=== PATIENT | male | born 1955 | race African-American/Black ===

== ENCOUNTER 2017-05-04 03:54 | Emergency (ER) | payer OTHER ==
[~2017-05-04] VITALS: Ht 190.5 cm; Wt 82.6 kg
[~2017-05-04 03:54] MED LIST: AMIT25TA PO; CARB200T4 PO; CYCL10TA2 PO; LANS30CA PO; LORA10CA PO
[2017-05-04 04:00] VITALS: BP 136/90
--- NOTE | 2017-05-04 04:28 | PHYS DOC ---
Past Medical History Past Medical History: Arthritis, GERD, Hypertension, Seizure, Other Additional Past Medical Histor: CHRONIC BACK PAIN, HEMORRHOIDS Past Surgical History: Other Additional Past Surgical Histo: RECTAL CYST REMOVAL Alcohol Use: None Drug Use: Marijuana Adult General Chief Complaint Chief Complaint: PAIN CONTROL HPI HPI Patient is a 61 year old -Thai male with history of chronic back pain and osteoarthritis who presents with pearly controlled rest back hip and joint pain. Patient states symptoms are consistent with known osteoarthritis. Patient states he is not taking any pain medication at home and does not have a follow-up appointment with his primary care physician for 1 more week. Patient arrives by EMS. States the doctor normally gives him a steroid shot. Patient is not diabetic. He does report history of reflux disease but denies history of peptic ulcer disease. No other acute symptoms or complaints.[] Review of Systems Review of Systems Review symptoms as per history of present illness. All other review symptoms are negative. [] All other systems were reviewed and found to be within normal limits, except as documented in this note. Current Medications Current Medications Current Medications Medications (Trade) Dose Ordered Sig/Ga Start Time Stop Time Status Last Admin Dose Admin Famotidine (Pepcid) 20 mg 1X ONCE 05/04/17 04:15 05/04/17 04:16 UNV Prednisone (Prednisone) 60 mg 1X ONCE 05/04/17 04:15 05/04/17 04:16 UNV Allergies Allergies Allergies Coded Allergies Type Severity Reaction Last Updated Verified Iodinated Contrast- Oral and IV Dye Allergy Intermediate 02/12/14 No Physical Exam Physical Exam Constitutional: Well developed, well nourished, no acute distress, non-toxic appearance. [] HENT: Normocephalic, atraumatic, bilateral external ears normal, oropharynx moist, no oral exudates, nose normal. [] Eyes: PERRLA, EOMI, conjunctiva normal, no discharge. [] Neck: Normal range of motion, no tenderness, supple, no stridor. [] Cardiovascular:Heart rate regular rhythm, no murmur [] Lungs & Thorax: Bilateral breath sounds clear to auscultation [] Abdomen: Bowel sounds normal, soft, no tenderness, no masses, no pulsatile masses. [] Skin: Warm, dry, no erythema, no rash. [] Back: No tenderness, no CVA tenderness. [] Extremities: No tenderness, no cyanosis, no clubbing, ROM intact, no edema. [] Neurologic: Alert and oriented X 3, normal motor function, normal sensory function, no focal deficits noted. [] Psychologic: Affect normal, judgement normal, mood normal. [] EKG EKG [] Radiology/Procedures Radiology/Procedures [] Course & Med Decision Making Course & Med Decision Making Pertinent Labs and Imaging studies reviewed. (See chart for details) Patient with worsening of chronic joint pain. Pepcid and prednisone given. Will place him 4 day, prednisone with instructions to follow-up with PCP. Patient instructed to discontinue prednisone should he have any side effects or GI tolerance. Patient verbalizes understating agreement discharge instructions.] Dragon Disclaimer Dragon Disclaimer This electronic medical record was generated, in whole or in part, using a voice recognition dictation system. Departure Departure Impression: Primary Impression: Arthritis Disposition: 01 HOME, SELF-CARE Condition: STABLE Referrals: CELY MULLINS MD (PCP) Patient Instructions: Osteoarthritis Additional Instructions: Take medications as directed and follow-up with your PCP as scheduled use steroids if GI upset or other concerning symptoms. LUIS HERNÁNDEZ DO May 04, 2017 04:27
[2017-05-04] MEDS ORDERED: predniSONE 20 MG TABLET PO ONE (04:30)
[2017-05-04] MEDS ORDERED: FAMOTIDINE 20 MG TABLET. PO ONE (04:30)
== END 2017-05-04 04:38 | disposition home or self-care (01) ==
LOC: ER 03:54
DX: M16.10 Unilateral primary osteoarthritis, unspecified hip (principal); K21.9 Gastro-esophageal reflux disease without esophagitis; I10 Essential (primary) hypertension; G89.29 Other chronic pain; F12.10 Cannabis abuse, uncomplicated; Z91.041 Radiographic dye allergy status
CPT/HCPCS: 99283; J7512

== ENCOUNTER 2017-09-06 08:16 | Emergency (ER) | payer OTHER | END 2017-09-06 09:06 | disposition home or self-care (01) | LOC: ER 08:16 | DX: M25.511 Pain in right shoulder (principal); K21.9 Gastro-esophageal reflux disease without esophagitis; I10 Essential (primary) hypertension; M19.90 Unspecified osteoarthritis, unspecified site; E78.00 Pure hypercholesterolemia, unspecified; F12.10 Cannabis abuse, uncomplicated; G89.29 Other chronic pain; Z91.041 Radiographic dye allergy status; Z79.891 Long term (current) use of opiate analgesic | CPT/HCPCS: 99283 ==

== ENCOUNTER 2017-10-02 15:08 | Emergency (ER) | payer OTHER ==
[2017-10-02 17:48] LABS: ADD MAN DIFF? NO
[2017-10-02 17:55] LABS: BASO # 0.1 x10^3/uL (0.0-0.2); BASO % 1 % (0-3); EOS # 0.1 x10^3/uL (0.0-0.7); EOS % 1 % (0-3); HEMATOCRIT 43.9 % (39.0-53.0); HEMOGLOBIN 15.1 g/dL (13.0-17.5); LYMPH # 2.1 x10^3/uL (1.0-4.8); LYMPH % 29 % (24-48); MEAN CORPUSCULAR HEMOGLOBIN 31 pg (25-35); MEAN CORPUSCULAR HGB CONC 35 g/dL (31-37); MEAN CORPUSCULAR VOLUME 88 fL (79-100); MONO # 0.7 x10^3/uL (0.0-1.1); MONO % 9 % (0-9); NEUT # 4.2 x10^3uL (1.8-7.7); NEUT % 59 % (31-73); PLATELET COUNT 152 x10^3/uL (140-400); RED BLOOD COUNT 4.97 x10^6/uL (4.30-5.70); RED CELL DISTRIBUTION WIDTH 15.2 % (11.5-14.5); WHITE BLOOD COUNT 7.2 x10^3/uL (4.0-11.0)
[2017-10-02 18:12] LABS: BLOOD UREA NITROGEN 13 mg/dL (8-26); BUN/CREATININE RATIO 11 (6-20); CARBON DIOXIDE 26 mmol/L (21-32); CHLORIDE 107 mmol/L (98-107); CREATININE 1.2 mg/dL (0.7-1.3); GLUCOSE 100 mg/dL (70-99); POTASSIUM 3.5 mmol/L (3.5-5.1); SODIUM 144 mmol/L (136-145)
[2017-10-02 18:13] LABS: ANION GAP 11 (6-14)
[2017-10-02 18:19] LABS: ALBUMIN 4.1 g/dL (3.4-5.0); ALBUMIN/GLOBULIN RATIO 1.1 (1.0-1.7); ALK PHOS 73 U/L (46-116); ALT (SGPT) 25 U/L (16-63); AST (SGOT) 16 U/L (15-37); C-REACTIVE PROTEIN 1.3 mg/L (0-3.3); TOTAL BILIRUBIN 0.4 mg/dL (0.2-1.0)
[2017-10-02 19:18] LABS: SEDIMENTATION RATE 9 (0-15)
== END 2017-10-02 19:40 | disposition home or self-care (01) ==
LOC: ER 15:08
DX: J30.9 Allergic rhinitis, unspecified (principal); R22.0 Localized swelling, mass and lump, head; G89.29 Other chronic pain; E78.00 Pure hypercholesterolemia, unspecified; K21.9 Gastro-esophageal reflux disease without esophagitis; I10 Essential (primary) hypertension; F12.10 Cannabis abuse, uncomplicated; Z91.041 Radiographic dye allergy status
CPT/HCPCS: 36415; 80053; 85025; 85651; 86140; 99284

== ENCOUNTER 2017-10-09 08:50 | Emergency (ER) | payer OTHER | END 2017-10-09 09:38 | disposition home or self-care (01) | LOC: ER 08:50 | DX: J32.0 Chronic maxillary sinusitis (principal); G89.29 Other chronic pain; Z91.041 Radiographic dye allergy status | CPT/HCPCS: 99283 ==

== ENCOUNTER 2017-12-15 07:55 | Emergency (ER) | payer OTHER ==
[2017-12-15] MEDS: KETOROLAC 60 MG/2 ML INJ. IM (08:19)
[2017-12-15] MEDS: DEXAMETHASONE SOD PHOS 4 MG/ML VIAL IM (08:20)
== END 2017-12-15 08:32 | disposition home or self-care (01) ==
LOC: ER 08:32
DX: M54.5 Low back pain (principal); M25.511 Pain in right shoulder; G89.29 Other chronic pain; Z91.041 Radiographic dye allergy status; M19.90 Unspecified osteoarthritis, unspecified site
CPT/HCPCS: 96372; 99284-25; J1100; J1885

== ENCOUNTER 2018-06-04 15:31 | Emergency (ER) | payer OTHER ==
[~2018-06-04] VITALS: Ht 180.3 cm; Wt 86.2 kg
[~2018-06-04 15:31] MED LIST changes: +AMOX500C PO; +DICL50TA4 PO; +FLUT9.9S NS; +ORPH100T PO; +OXYC1TAB15 PO; +TRAM1TAB4 PO
[2018-06-04 15:35] VITALS: BP 151/88
[2018-06-04] MEDS ORDERED: PRED-220 PO (16:21)
[2018-06-04] MEDS ORDERED: AMOX500T PO (16:21)
--- NOTE | 2018-06-04 16:22 | PHYS DOC ---
Past Medical History Past Medical History: Arthritis, Sinusitis, Other Additional Past Medical Histor: CHRONIC BACK PAIN, HEMORRHOIDS Past Surgical History: Other Additional Past Surgical Histo: RECTAL CYST REMOVAL Alcohol Use: None Drug Use: None Adult General Chief Complaint Chief Complaint: MEDICATION REFILL [facility] Patient is a 62 year old male with history of arthritis and sinusitis who presents today requesting a refill of prednisone and amoxicillin. Patient states his arthritis pain has increased, he is requesting prednisone because he has taken it before with good relief. He states he usually gets amoxicillin when he has a sinus infection. He states he feels he has one. He states he has had nasal drainage for over a week. Patient denies any fever. Review of Systems Review of Systems Constitutional: Denies fever or chills [] Eyes: Denies change in visual acuity, redness, or eye pain [] HENT: Reports nasal congestion, denies sore throat [] Respiratory: Denies cough or shortness of breath [] Cardiovascular: No additional information not addressed in HPI [] GI: Denies abdominal pain, nausea, vomiting, bloody stools or diarrhea [] : Denies dysuria or hematuria [] Musculoskeletal: Reports arthritis pain Integument: Denies rash or skin lesions [] Neurologic: Denies headache, focal weakness or sensory changes [] All other systems were reviewed and found to be within normal limits, except as documented in this note. Allergies Allergies Allergies Coded Allergies Type Severity Reaction Last Updated Verified Iodinated Contrast- Oral and IV Dye Allergy Intermediate 02/12/14 No Physical Exam Physical Exam Constitutional: Well developed, well nourished, no acute distress, non-toxic appearance. [] HENT: Normocephalic, atraumatic, bilateral external ears normal, oropharynx moist, no oral exudates, patient sounds congested nasally. Mild maxillary and frontal sinus tenderness. Eyes: PERRLA, EOMI, conjunctiva normal, no discharge. [] Neck: Normal range of motion, no tenderness, supple, no stridor. [] Cardiovascular:Heart rate regular rhythm, no murmur [] Lungs & Thorax: Bilateral breath sounds clear to auscultation [] Abdomen: Bowel sounds normal, soft, no tenderness, no masses, no pulsatile masses. [] Skin: Warm, dry, no erythema, no rash. [] Back: No tenderness, no CVA tenderness. [] Extremities: No tenderness, no cyanosis, no clubbing, ROM intact, no edema. [] Neurologic: Alert and oriented X 3, normal motor function, normal sensory function, no focal deficits noted. [] Psychologic: Affect normal, judgement normal, mood normal. [] EKG EKG [] Radiology/Procedures Radiology/Procedures [] Course & Med Decision Making Course & Med Decision Making Pertinent Labs and Imaging studies reviewed. (See chart for details) This is a 62-year-old patient presenting to the ED today for medication refill for prednisone which he takes for arthritis as well as amoxicillin which she occasionally takes for sinus infection. Prescriptions were given to patient. He will follow-up with his PCP. Dragon Disclaimer Dragon Disclaimer This electronic medical record was generated, in whole or in part, using a voice recognition dictation system. Departure Departure Impression: Primary Impression: Arthritis Additional Impressions: Sinusitis Medication refill Disposition: HOME, SELF-CARE Condition: STABLE Referrals: CELY MULLINS MD (PCP) follow up in 1-2 week Patient Instructions: Arthritis, Degenerative-Brief, Sinusitis Additional Instructions: You were prescription for prednisone and amoxicillin. Take the medications as prescribed. Follow-up with your doctor in 1-2 weeks. Scripts Prednisone (PREDNISONE ) 10 Mg Tablet 10 MG PO DAILY, #50 TAB 0 Refills Dispense as follows 50 mg �2 days 40 mg �2 days 30 mg �2 days 20 mg �2 days 10 mg x 2 days Prov: AYDEE YOO APRN 06/04/18 Amoxicillin (AMOXICILLIN) 500 Mg Tablet 1 TAB PO TID, #30 TAB Prov: AYDEE YOO APRN 06/04/18 Problem Qualifiers Additional Impressions: Sinusitis Sinusitis location: maxillary Chronicity: chronic Qualified Codes: J32.0 - Chronic maxillary sinusitis AYDEE YOO APRN Jun 04, 2018 16:22
== END 2018-06-04 16:27 | disposition home or self-care (01) ==
LOC: ER 15:31
DX: J32.0 Chronic maxillary sinusitis (principal); Z76.0 Encounter for issue of repeat prescription; M19.90 Unspecified osteoarthritis, unspecified site; G89.29 Other chronic pain; Z91.041 Radiographic dye allergy status
CPT/HCPCS: 99283

== ENCOUNTER 2018-08-07 03:42 | Emergency (ER) | payer OTHER ==
[~2018-08-07] VITALS: Ht 182.9 cm; Wt 86.2 kg
[~2018-08-07 03:42] MED LIST changes: +AMOX500T PO; +PRED-220 PO
[2018-08-07 03:45] VITALS: BP 158/71
[2018-08-07] MEDS ORDERED: PRED50TA PO (04:46)
--- NOTE | 2018-08-07 04:59 | PHYS DOC ---
Past Medical History Past Medical History: Arthritis, Sinusitis, Other Additional Past Medical Histor: CHRONIC BACK PAIN, HEMORRHOIDS Past Surgical History: Other Additional Past Surgical Histo: RECTAL CYST REMOVAL Alcohol Use: None Drug Use: None Adult General Chief Complaint Chief Complaint: UPPER EXTREMITY PAIN HPI HPI Patient is a 63 year old male with a long history of arthritis presents w/ Joint pain located in his right shoulder, Left hip and knee, and his neck. Pt has been seeing a PCP for treatment of his OA but notes he is no longer seeing this PCP and waiting for his insurance to get a new PCP. He describes the onset as years ago, describes the pain as soreness/achey/deep bone pain that is rated a 9/10. Prednisone "helps a ton" and is the one thing that gives him the most pain relief. He notes an inability to take NSAID's d/t "terrible GERD." He denies fever, chills, n/v, diarrhea, constipation, CP, warmth/swelling/redness at the painful joints, or abdominal pain. HE has no other complaints. Review of Systems Review of Systems Constitutional: Denies fever or chills Eyes: Denies change in visual acuity, redness, or eye pain HENT: Denies nasal congestion or sore throat Respiratory: Denies cough. Cardiovascular: No additional information not addressed in HPI GI: Denies abdominal pain, nausea, vomiting, bloody stools or diarrhea : Denies dysuria or hematuria Musculoskeletal: Admits back pain or joint pain [] Integument: Denies rash or skin lesions Neurologic: Denies focal weakness or sensory changes. Admits BENITO. Endocrine: Denies polyuria or polydipsia All other systems were reviewed and found to be within normal limits, except as documented in this note. Current Medications Current Medications Current Medications Medications (Trade) Dose Ordered Sig/Ga Start Time Stop Time Status Last Admin Dose Admin Prednisone (Prednisone) 50 mg 1X ONCE 08/07/18 05:00 08/07/18 05:00 DC Allergies Allergies Allergies Coded Allergies Type Severity Reaction Last Updated Verified Iodinated Contrast- Oral and IV Dye Allergy Intermediate 02/12/14 No Physical Exam Physical Exam Constitutional: Well developed, well nourished, no acute distress, non-toxic appearance. HENT: Normocephalic, atraumatic, bilateral external ears normal, oropharynx moist, no oral exudates, nose normal. Eyes: PERRLA, EOMI, conjunctiva normal, no discharge. Neck: Limited active range of motion due to pain. no tenderness, supple, no stridor. Cardiovascular:Heart rate regular rhythm, no murmur Lungs & Thorax: Bilateral breath sounds clear to auscultation Abdomen: Bowel sounds normal, soft, no tenderness, no masses, no pulsatile masses. Skin: Warm, dry, no erythema, no rash. Back: No tenderness, no CVA tenderness. Extremities: No tenderness, no cyanosis, no clubbing, ROM intact, no edema. Able to precipitate right shoulder pain at >125 degree abduction and flexion. no pain w/ adduction or extension. No warmth, swelling, or erythema appreciated at right shoulder, left hip, left knee, or neck. Hip pain reproduced w/ abduction past 35 degrees. Crepitus noted at left knee w/ knee flexion. Unable to reproduce pain. Neurologic: Alert and oriented X 3, normal motor function, normal sensory function, no focal deficits noted. Psychologic: Affect normal, judgement normal, mood normal. Current Patient Data Vital Signs Vital Signs Date Time Temp Pulse Resp B/P (MAP) Pulse Ox O2 Delivery O2 Flow Rate FiO2 08/07/18 03:45 98.7 85 16 158/71 (100) 99 Room Air 98.7 EKG EKG [] Radiology/Procedures Radiology/Procedures [] Course & Med Decision Making Course & Med Decision Making Pt is a 63 yo afebrile male w/ a long history of osteoarthritis presenting with right shoulder, neck, left hip, and left knee pain. He has had this for years pt reports. He was being followed and treated for his OA by his PCP, but pt is no longer seeing this physician and is looking for a new provider. Prednisone has given him the greatest relief in the past. No suspicion for septic joints - able to passively move all painful joints w/out reproducing pain. No warmth, swelling, or erythema. Ddx Osteoarthritis Workup Prednisone F/u with new PCP when chosen Dragon Disclaimer Dragon Disclaimer This electronic medical record was generated, in whole or in part, using a voice recognition dictation system. Departure Departure Impression: Primary Impression: Arthritis Disposition: 01 HOME, SELF-CARE Condition: STABLE Referrals: CELY MULLINS MD (PCP) Patient Instructions: Arthritis, Degenerative-Brief Scripts Prednisone (PREDNISONE) 50 Mg Tablet 1 TAB PO DAILY, #5 TAB Prov: NATO CRUMP MD 08/07/18 NATO CRUMP MD Aug 07, 2018 04:59
[2018-08-07] MEDS ORDERED: predniSONE 20 MG TABLET PO ONE (05:00)
== END 2018-08-07 04:50 | disposition home or self-care (01) ==
LOC: ER 03:42
DX: M19.011 Primary osteoarthritis, right shoulder (principal); M17.12 Unilateral primary osteoarthritis, left knee; M16.12 Unilateral primary osteoarthritis, left hip; M54.2 Cervicalgia; G89.29 Other chronic pain; K21.9 Gastro-esophageal reflux disease without esophagitis; Z91.041 Radiographic dye allergy status
CPT/HCPCS: 99283

== ENCOUNTER 2018-09-02 12:03 | Emergency (ER) | payer OTHER ==
[~2018-09-02] VITALS: Ht 190.5 cm; Wt 92.1 kg
[~2018-09-02 12:03] MED LIST changes: +PRED50TA PO
[2018-09-02 12:10] VITALS: BP 177/93
[2018-09-02] MEDS ORDERED: PRED50TA PO (12:18)
--- NOTE | 2018-09-02 12:19 | PHYS DOC ---
Past Medical History Past Medical History: Arthritis, Sinusitis, Other Additional Past Medical Histor: CHRONIC BACK PAIN, HEMORRHOIDS Past Surgical History: Other Additional Past Surgical Histo: RECTAL CYST REMOVAL Alcohol Use: None Drug Use: None Adult General Chief Complaint Chief Complaint: MEDICATION REFILL [facility] Patient is a 63 year old male who presents with a need for medication refill. The patient has chronic arthritis and takes prednisone for pain. He is running out of his medication and has no primary care provider. Review of Systems Review of Systems Constitutional: Denies fever or chills [] Respiratory: Denies cough or shortness of breath [] Cardiovascular: No additional information not addressed in HPI [] GI: Denies abdominal pain, nausea, vomiting, bloody stools or diarrhea [] : Denies dysuria or hematuria [] Musculoskeletal: See history of present illness Integument: Denies rash or skin lesions [] Neurologic: Denies headache, focal weakness or sensory changes [] Endocrine: Denies polyuria or polydipsia [] All other systems were reviewed and found to be within normal limits, except as documented in this note. Allergies Allergies Allergies Coded Allergies Type Severity Reaction Last Updated Verified Iodinated Contrast- Oral and IV Dye Allergy Intermediate 02/12/14 No Physical Exam Physical Exam Constitutional: Well developed, well nourished, no acute distress, non-toxic appearance. [] Cardiovascular:Heart rate regular rhythm, no murmur [] Lungs & Thorax: Bilateral breath sounds clear to auscultation [] Abdomen: Bowel sounds normal, soft, no tenderness, no masses, no pulsatile masses. [] Skin: Warm, dry, no erythema, no rash. [] Back: No tenderness, no CVA tenderness. [] Extremities: No tenderness, no cyanosis, no clubbing, ROM intact, no edema. [] Neurologic: Alert and oriented X 3, normal motor function, normal sensory function, no focal deficits noted. [] Psychologic: Affect normal, judgement normal, mood normal. [] Current Patient Data Vital Signs Vital Signs Date Time Temp Pulse Resp B/P (MAP) Pulse Ox O2 Delivery O2 Flow Rate FiO2 09/02/18 12:10 98.5 85 17 177/93 (121) 95 Room Air 98.5 EKG EKG [] Radiology/Procedures Radiology/Procedures [] Course & Med Decision Making Course & Med Decision Making Pertinent Labs and Imaging studies reviewed. (See chart for details) It is recommended the patient find a primary care provider to control his chronic arthritis pain. Dragon Disclaimer Dragon Disclaimer This electronic medical record was generated, in whole or in part, using a voice recognition dictation system. Departure Departure Impression: Primary Impression: Medication refill Disposition: HOME, SELF-CARE Condition: STABLE Referrals: CELY MULLINS MD (PCP) Patient Instructions: Medication Refill, Emergency Department Additional Instructions: Take the medication as directed. You need to find a primary care provider for management of your chronic conditions. Scripts Prednisone (PREDNISONE) 50 Mg Tablet 1 TAB PO DAILY for pain, #5 TAB Prov: JANIS MOORE APRN 09/02/18 JANIS MOORE APRN Sep 02, 2018 12:19
== END 2018-09-02 12:30 | disposition home or self-care (01) ==
LOC: ER 12:03
DX: M19.90 Unspecified osteoarthritis, unspecified site (principal); Z76.0 Encounter for issue of repeat prescription; G89.29 Other chronic pain; Z91.041 Radiographic dye allergy status
CPT/HCPCS: 99283

== ENCOUNTER 2019-01-25 10:07 | Emergency (ER) | payer OTHER, MEDICAID ==
[~2019-01-25] VITALS: Ht 190.5 cm; Wt 92.1 kg
[2019-01-25 10:18] VITALS: BP 161/85
[2019-01-25] MEDS ORDERED: PRED-220 PO (10:41)
--- NOTE | 2019-01-25 10:41 | PHYS DOC ---
Past Medical History Past Medical History: Arthritis, Sinusitis, Other Additional Past Medical Histor: CHRONIC BACK PAIN, HEMORRHOIDS Past Surgical History: Other Additional Past Surgical Histo: RECTAL CYST REMOVAL Alcohol Use: None Drug Use: None Adult General Chief Complaint Chief Complaint: GENERALIZED [facility] Patient is a 63 year old male who presents with complaining of hurting in all joints. Patient states he has had history of arthritis and usually gets 10 mg prednisone daily but he ran out of his medication and was not able to be seen by his primary care physician before his pain getting worse. Patient denies fever and chills, nausea and vomiting, shortness of breath and chest pain. Patient has had frequent emergency room visits for different pain and medication refill. Review of Systems Review of Systems Constitutional: Denies fever or chills [] Eyes: Denies change in visual acuity, redness, or eye pain [] HENT: Denies nasal congestion or sore throat [] Respiratory: Denies cough or shortness of breath [] Cardiovascular: No additional information not addressed in HPI [] GI: Denies abdominal pain, nausea, vomiting, bloody stools or diarrhea [] : Denies dysuria or hematuria [] Musculoskeletal: Denies back pain, reports joint pain [] Integument: Denies rash or skin lesions [] Neurologic: Denies headache, focal weakness or sensory changes [] Endocrine: Denies polyuria or polydipsia [] All other systems were reviewed and found to be within normal limits, except as documented in this note. Allergies Allergies Allergies Coded Allergies Type Severity Reaction Last Updated Verified Iodinated Contrast Media Allergy Intermediate 02/12/14 No Physical Exam Physical Exam Constitutional: Well developed, well nourished, mild distress, non-toxic appearance. [] HENT: Normocephalic, atraumatic. Eyes: PERRLA, EOMI, conjunctiva normal, no discharge. [] Neck: Normal range of motion, no tenderness, supple, no stridor. [] Cardiovascular:Heart rate regular rhythm, no murmur [] Lungs & Thorax: Bilateral breath sounds clear to auscultation [] Extremities: No tenderness, no cyanosis, no clubbing, ROM intact, no joint edema or tenderness or erythema. [] Neurologic: Alert and oriented X 3, no focal deficits noted. [] Psychologic: Affect normal, judgement normal, mood normal. [] Current Patient Data Vital Signs Vital Signs Date Time Temp Pulse Resp B/P (MAP) Pulse Ox O2 Delivery O2 Flow Rate FiO2 01/25/19 10:18 97.5 63 18 161/85 (110) 98 Room Air 97.5 EKG EKG [] Radiology/Procedures Radiology/Procedures [] Course & Med Decision Making Course & Med Decision Making Evaluation of patient in ER showed 63-year-old male patient presented to ER for medication refill. Patient was advised to follow up with his primary care physician for chronic pain and arthritis. Dragon Disclaimer Dragon Disclaimer This electronic medical record was generated, in whole or in part, using a voice recognition dictation system. Departure Departure Impression: Primary Impression: Medication refill Additional Impression: Arthritis Disposition: HOME, SELF-CARE (at 1036) Condition: STABLE Referrals: CELY MULLINS MD (PCP) Patient Instructions: Arthritis, Nonspecific, Medication Refill, Emergency Department Additional Instructions: Follow-up with [facility] Dr. Mehrdad Paulino, call [phone] to make an appointment in 2 or 3 days Follow-up with your primary care physician in 3-5 days Return to ER if not getting better Scripts Prednisone (PREDNISONE ) 10 Mg Tablet 10 MG PO DAILY, #20 TAB 0 Refills Prov: ESTHER AVILA MD 01/25/19 Problem Qualifiers ESTHER AVILA MD Jan 25, 2019 10:41
== END 2019-01-25 10:48 | disposition home or self-care (01) ==
LOC: ER 10:07
DX: M79.10 Myalgia, unspecified site (principal); G89.29 Other chronic pain; Z91.041 Radiographic dye allergy status
CPT/HCPCS: 99283

== ENCOUNTER 2019-04-04 08:34 | Emergency (ER) | payer OTHER, MEDICAID ==
[~2019-04-04] VITALS: Ht 190.5 cm; Wt 93.9 kg
[2019-04-04 08:45] VITALS: BP 167/76
[2019-04-04] MEDS ORDERED: PRED-220 PO (09:15)
--- NOTE | 2019-04-04 09:15 | PHYS DOC ---
Past Medical History Past Medical History: Arthritis, Sinusitis, Other Additional Past Medical Histor: CHRONIC BACK PAIN, HEMORRHOIDS Past Surgical History: Other Additional Past Surgical Histo: RECTAL CYST REMOVAL Alcohol Use: None Drug Use: None Adult General Chief Complaint Chief Complaint: PAIN CONTROL HPI HPI Patient is a 63 year old male with history of chronic arthritis who presents with requesting refill of medication. Patient states he ran out of his prednisone and pain medication for the last couple days and asking for refill of prednisone 10 mg and oxycodone 7.5 mg. Patient states he was not able to get hold of his primary care physician. Patient he has blood pressure and other medication and doesn't need prescription for them. Patient had previous ER visits for medication refill. Patient denies fever and chills, focal neuro deficit, nausea and vomiting, chest pain and shortness of breath. Patient compl aining of pain in all of his joints. Review of Systems Review of Systems Constitutional: Denies fever or chills [] Eyes: Denies change in visual acuity, redness, or eye pain [] HENT: Denies nasal congestion or sore throat [] Respiratory: Denies cough or shortness of breath [] Cardiovascular: No additional information not addressed in HPI [] GI: Denies abdominal pain, nausea, vomiting, bloody stools or diarrhea [] : Denies dysuria or hematuria [] Musculoskeletal: Denies back pain, reports joint pain [] Integument: Denies rash or skin lesions [] Neurologic: Denies headache, focal weakness or sensory changes [] Endocrine: Denies polyuria or polydipsia [] All other systems were reviewed and found to be within normal limits, except as documented in this note. Allergies Allergies Allergies Coded Allergies Type Severity Reaction Last Updated Verified Iodinated Contrast Media Allergy Intermediate 02/12/14 No Physical Exam Physical Exam Constitutional: Well developed, well nourished, mild distress, non-toxic appea haylee. [] HENT: Normocephalic, atraumatic. Eyes: PERRLA, EOMI, conjunctiva normal, no discharge. [] Neck: Normal range of motion, no tenderness, supple, no stridor. [] Cardiovascular:Heart rate regular rhythm, no murmur [] Lungs & Thorax: Bilateral breath sounds clear to auscultation [] Extremities: No tenderness, no cyanosis, no clubbing, ROM intact, no edema. [] Neurologic: Alert and oriented X 3, no focal deficits noted. [] Psychologic: Affect normal, judgement normal, mood normal. [] Current Patient Data Vital Signs Vital Signs Date Time Temp Pulse Resp B/P (MAP) Pulse Ox O2 Delivery O2 Flow Rate FiO2 04/04/19 08:45 99.1 65 16 167/76 (106) 97 Room Air 99.1 EKG EKG [] Radiology/Procedures Radiology/Procedures [] Course & Med Decision Making Course & Med Decision Making Evaluation of patient in ER showed 63-year-old patient presented for refill of prednisone and oxycodone. Patient had previous ER visit for the same problem. Patient was advised to follow-up with his primary care physician regarding refill of OxyContin. Prescription for prednisone 10 mg one daily was given. I've spoken with the patient and/or caregivers. I've explained the patient's condition, diagnosis and treatment plan based on information available to me at this time. I've answered the patient's and/or caregivers questions and addressed any concerns. The patient and/or caregivers have a good understanding the patient's diagnosis, condition and treatment plan as can be expected at this point. Vital signs have been stabilized. The patient's condition is stable for discharge from the emergency department. The patient will pursue further outpatient evaluation with her primary care provider or other designated consulting physician as outlined in the discharge instructions. Patient and/or caregivers are agreeable to this plan of care and follow-up instructions have been explained in detail. The patient and/or caregivers have received these instructions in written format and expressed understanding of these discharge instructions. The patient and her caregivers are aware that if any significant change in condition or worsening of symptoms should prompt him to immediately return to this of the closest emergency department. If an emergent department is not readily available I would encourage him to call 911. Pina Disclaimer Dragon Disclaimer This electronic medical record was generated, in whole or in part, using a voice recognition dictation system. Departure Departure Impression: Primary Impression: Encounter for medication refill Additional Impression: Arthritis Disposition: HOME, SELF-CARE (at 0912) Condition: STABLE Referrals: EDDIE SILVESTRE MD (PCP) Patient Instructions: Arthritis, Nonspecific, Medication Refill, Emergency Department Additional Instructions: Follow-up with your primary care physician in 2-3 days for medication refill Return to ER if not getting better Scripts Prednisone (PREDNISONE ) 10 Mg Tablet 10 MG PO DAILY, #14 TAB 0 Refills Prov: ESTHER AVILA MD 04/04/19 Problem Qualifiers ESTHER AVILA MD Apr 04, 2019 09:15
== END 2019-04-04 09:37 | disposition home or self-care (01) ==
LOC: ER 08:34
DX: M19.90 Unspecified osteoarthritis, unspecified site (principal); Z76.0 Encounter for issue of repeat prescription; G89.29 Other chronic pain; Z91.041 Radiographic dye allergy status
CPT/HCPCS: 99283

== ENCOUNTER → 2020-01-20 | Outpatient (CLI) | payer OTHER, MEDICAID ==
--- NOTE | 2020-01-20 16:17 | RAD ---
Examination: Ultrasound kidneys HISTORY: History of chronic kidney disease COMPARISON: None available FINDINGS: The right kidney measures 10.2 x 5.0 x 5.0 cm. The left kidney measures 11.0 x 5.0 x 5.1 cm. No evidence of hydronephrosis. The bladder is mildly distended. Impression: Unremarkable visualized exam. Electronically signed by: Jose Luis Mcgovern MD (01/20/2020 4:14 PM) [id number]
== END | disposition home or self-care (01) ==
LOC: US 15:32
PROVIDERS: ATTEND Internal Medicine Nephrology
DX: N18.3 Chronic kidney disease, stage 3 (moderate) (principal); N32.89 Other specified disorders of bladder
CPT/HCPCS: 76770

== ENCOUNTER 2020-06-20 02:49 | Emergency (ER) | payer OTHER, MEDICAID ==
[~2020-06-20] VITALS: Ht 190.5 cm; Wt 99.5 kg
--- NOTE | 2020-06-20 03:01 | ED.ADGEN ---
Past Medical History Past Medical History: Arthritis, Sinusitis, Other Additional Past Medical Histor: CHRONIC BACK PAIN, HEMORRHOIDS Past Surgical History: Other Additional Past Surgical Histo: RECTAL CYST REMOVAL Smoking Status: Never Smoker Alcohol Use: None Drug Use: None General Adult EDM: Chief Complaint: NAUSEA/VOMITING/DIARRHA HPI: HPI: Patient is a 64 year old male coming in via EMS for nausea. Patient states he awoke at 1 AM, about 2 hours prior to arrival and felt nauseous and that came and went. Has not vomited and denies any pain or sore throat. Last p.o. intake about 8 hours ago. No sick contacts. No diarrhea constipation, no cough shortness of breath. Patient states she does have a history of reflux was been taking famotidine for it. Review of Systems: Review of Systems: All other systems within normal limits except for as noted in the HPI Current Medications: Current Medications Medications (Trade) Dose Ordered Sig/Ga Start Time Stop Time Status Last Admin Dose Admin Ondansetron HCl (Zofran) 4 mg 1X ONCE 06/20/20 03:30 06/20/20 03:31 DC 06/20/20 03:38 4 MG Allergies: Allergies: Allergies Coded Allergies Type Severity Reaction Last Updated Verified Iodinated Contrast Media Allergy Intermediate 02/12/14 No Physical Exam: PE: Constitutional: Well developed, well nourished, no acute distress, non-toxic appearance. [] HENT: Normocephalic, atraumatic, bilateral external ears normal, nose normal. [] Eyes: PERRLA, conjunctiva normal, no discharge. [] Neck: No rigidity, supple, no stridor. [] Cardiovascular: Regular rate and rhythm, brisk cap refill [] Lungs & Thorax: Non labored symmetric respirations, no tachypnea or respiratory distress [] Abdomen: Soft, nondistended, no tenderness or guarding.. Skin: Warm, dry, no erythema, no rash. [] Back: Unremarkable Extremities: No deformities, range of motion grossly intact, no lower extremity edema [] Neurologic: Alert and oriented X 3, no focal deficits noted. [] Psychologic: Affect normal, judgement normal, mood normal. [] Current Patient Data: Labs: Laboratory Tests Test 06/20/20 03:20 White Blood Count 6.5 x10^3/uL (4.0-11.0) Red Blood Count 4.64 x10^6/uL (4.30-5.70) Hemoglobin 13.2 g/dL (13.0-17.5) Hematocrit 39.1 % (39.0-53.0) Mean Corpuscular Volume 84 fL (79-100) Mean Corpuscular Hemoglobin 28 pg (25-35) Mean Corpuscular Hemoglobin Concent 34 g/dL (31-37) Red Cell Distribution Width 14.9 % (11.5-14.5) H Platelet Count 169 x10^3/uL (140-400) Neutrophils (%) (Auto) 65 % (31-73) Lymphocytes (%) (Auto) 23 % (24-48) L Monocytes (%) (Auto) 9 % (0-9) Eosinophils (%) (Auto) 3 % (0-3) Basophils (%) (Auto) 1 % (0-3) Neutrophils # (Auto) 4.2 x10^3/uL (1.8-7.7) Lymphocytes # (Auto) 1.5 x10^3/uL (1.0-4.8) Monocytes # (Auto) 0.6 x10^3/uL (0.0-1.1) Eosinophils # (Auto) 0.2 x10^3/uL (0.0-0.7) Basophils # (Auto) 0.0 x10^3/uL (0.0-0.2) Sodium Level 141 mmol/L (136-145) Potassium Level 3.7 mmol/L (3.5-5.1) Chloride Level 105 mmol/L (98-107) Carbon Dioxide Level 28 mmol/L (21-32) Anion Gap 8 (6-14) Blood Urea Nitrogen 15 mg/dL (8-26) Creatinine 1.7 mg/dL (0.7-1.3) H Estimated GFR (Cockcroft-Gault) 49.2 BUN/Creatinine Ratio 9 (6-20) Glucose Level 137 mg/dL (70-99) H Calcium Level 10.0 mg/dL (8.5-10.1) Total Bilirubin 0.2 mg/dL (0.2-1.0) Aspartate Amino Transferase (AST) 27 U/L (15-37) Alanine Aminotransferase (ALT) 45 U/L (16-63) Alkaline Phosphatase 117 U/L (46-116) H Troponin I Quantitative < 0.017 ng/mL (0.000-0.055) Total Protein 7.5 g/dL (6.4-8.2) Albumin 3.5 g/dL (3.4-5.0) Albumin/Globulin Ratio 0.9 (1.0-1.7) L Lipase 163 U/L (73-393) Laboratory Tests 06/20/20 03:20 Laboratory Tests 06/20/20 03:20 EKG: EKG: [] Heart Score: Risk Factors: Risk Factors: DM, Current or recent (<one month) smoker, HTN, HLP, family history of CAD, obesity. Risk Scores: Score 0 - 3: 2.5% MACE over next 6 weeks - Discharge Home Score 4 - 6: 20.3% MACE over next 6 weeks - Admit for Clinical Observation Score 7 - 10: 72.7% MACE over next 6 weeks - Early Invasive Strategies Radiology/Procedures: Radiology/Procedures: [] Course & Med Decision Making: Course & Med Decision Making Pertinent Labs and Imaging studies reviewed. (See chart for details) Denies improved with Zofran. Work-up unremarkable [] Dragon Disclaimer: Dragon Disclaimer: This electronic medical record was generated, in whole or in part, using a voice recognition dictation system. Departure Departure Impression: Primary Impression: Arthritis Additional Impression: Nausea Disposition: 01 DC HOME SELF CARE/HOMELESS Condition: IMPROVED Referrals: CELY MULLINS MD (PCP) Patient Instructions: Nausea, Adult Scripts Methylprednisolone (MEDROL) 4 Mg Tab.ds.pk 1 PKG PO UD for inflammation, #1 PKG Prov: HILL DALEY MD 06/20/20 Ondansetron (ONDANSETRON ODT) 4 Mg Tab.rapdis 4 MG PO BID PRN for NAUSEA/VOMITING for 5 Days, #10 TAB Prov: HILL DALEY MD 06/20/20 Problem Qualifiers HILL DALEY MD Jun 20, 2020 03:01
[2020-06-20] MEDS ORDERED: ONDANSETRON PF 4 MG/2 ML VIAL. IVP ONE (03:30)
[2020-06-20 03:39] LABS: BASO % 1 % (0-3); EOS # 0.2 x10^3/uL (0.0-0.7); EOS % 3 % (0-3); HEMATOCRIT 39.1 % (39.0-53.0); HEMOGLOBIN 13.2 g/dL (13.0-17.5); LYMPH # 1.5 x10^3/uL (1.0-4.8); LYMPH % 23 % (24-48); MEAN CORPUSCULAR HEMOGLOBIN 28 pg (25-35); MEAN CORPUSCULAR HGB CONC 34 g/dL (31-37); MEAN CORPUSCULAR VOLUME 84 fL (79-100); MONO # 0.6 x10^3/uL (0.0-1.1); MONO % 9 % (0-9); NEUT # 4.2 x10^3/uL (1.8-7.7); NEUT % 65 % (31-73); PLATELET COUNT 169 x10^3/uL (140-400); RED BLOOD COUNT 4.64 x10^6/uL (4.30-5.70); RED CELL DISTRIBUTION WIDTH 14.9 % (11.5-14.5); WHITE BLOOD COUNT 6.5 x10^3/uL (4.0-11.0)
[2020-06-20 03:47] LABS: CREATININE 1.7 mg/dL (0.7-1.3); GFR 49.2; POTASSIUM 3.7 mmol/L (3.5-5.1)
[2020-06-20 03:53] LABS: ALBUMIN 3.5 g/dL (3.4-5.0); ALBUMIN/GLOBULIN RATIO 0.9 (1.0-1.7); TOTAL BILIRUBIN 0.2 mg/dL (0.2-1.0); TOTAL PROTEIN 7.5 g/dL (6.4-8.2)
[2020-06-20] MEDS ORDERED: ONDA4TAB12 PO (05:30)
[2020-06-20] MEDS ORDERED: METH4TAB2 PO (05:30)
[2020-06-20 05:55] VITALS: BP 142/89
== END 2020-06-20 06:12 | disposition home or self-care (01) ==
LOC: ER 02:49
DX: M19.90 Unspecified osteoarthritis, unspecified site (principal); R11.0 Nausea; G89.29 Other chronic pain; Z91.041 Radiographic dye allergy status
CPT/HCPCS: 36415; 80053; 83690; 84484; 85025; 96374; 99285; J2405

== ENCOUNTER 2020-09-15 07:27 | Emergency (ER) | payer OTHER, MEDICAID ==
[~2020-09-15] VITALS: Ht 190.5 cm; Wt 102.7 kg
[~2020-09-15 07:27] MED LIST changes: +METH4TAB2 PO; +ONDA4TAB12 PO
[2020-09-15 08:00] VITALS: BP 160/81
[2020-09-15] MEDS ORDERED: LOPE2TAB27 PO (08:24)
--- NOTE | 2020-09-15 08:25 | PHYS DOC ---
Past Medical History Past Medical History: Arthritis, GERD, Hypertension, Seizure, Sinusitis, Other Additional Past Medical Histor: CHRONIC BACK PAIN, HEMORRHOIDS Past Surgical History: Other Additional Past Surgical Histo: RECTAL CYST REMOVAL Smoking Status: Never Smoker Alcohol Use: None Drug Use: None Adult General Chief Complaint Chief Complaint: DIARRHEA HPI HPI Patient is a 65 year old male with past medical history of hypertension GERD presents emergency department complaining onset of diarrhea. States that over the last 2 days he has had 4 watery bowel movements a day. Denies any nausea vomiting or abdominal pain. Denies any fevers. Patient states that he spoke to his doctor yesterday about his arthritis but did not mention diarrhea. Review of Systems Review of Systems Constitutional: Denies fever or chills [] Eyes: Denies change in visual acuity, redness, or eye pain [] HENT: Denies nasal congestion or sore throat [] Respiratory: Denies cough or shortness of breath [] Cardiovascular: No additional information not addressed in HPI [] GI: Denies abdominal pain, nausea, vomiting, bloody stools or diarrhea [] : Denies dysuria or hematuria [] Musculoskeletal: Denies back pain or joint pain [] Integument: Denies rash or skin lesions [] Neurologic: Denies headache, focal weakness or sensory changes [] Endocrine: Denies polyuria or polydipsia [] All other systems were reviewed and found to be within normal limits, except as documented in this note. Allergies Allergies Allergies Coded Allergies Type Severity Reaction Last Updated Verified Iodinated Contrast Media Allergy Intermediate 02/12/14 No Physical Exam Physical Exam Constitutional: Well developed, well nourished, no acute distress, non-toxic appearance. [] HENT: Normocephalic, atraumatic, bilateral external ears normal, oropharynx moist, no oral exudates, nose normal. [] Eyes: PERRLA, EOMI, conjunctiva normal, no discharge. [] Neck: Normal range of motion, no tenderness, supple, no stridor. [] Cardiovascular:Heart rate regular rhythm, no murmur [] Lungs & Thorax: Bilateral breath sounds clear to auscultation [] Abdomen: Bowel sounds normal, soft, no tenderness, no masses, no pulsatile masses. [] Skin: Warm, dry, no erythema, no rash. [] Back: No tenderness, no CVA tenderness. [] Extremities: No tenderness, no cyanosis, no clubbing, ROM intact, no edema. [] Neurologic: Alert and oriented X 3, normal motor function, normal sensory function, no focal deficits noted. [] Psychologic: Affect normal, judgement normal, mood normal. [] Current Patient Data Vital Signs Vital Signs Date Time Temp Pulse Resp B/P (MAP) Pulse Ox O2 Delivery O2 Flow Rate FiO2 09/15/20 08:00 98.6 62 16 160/81 (107) 96 98.6 EKG EKG [] Radiology/Procedures Radiology/Procedures [] Course & Med Decision Making Course & Med Decision Making Pertinent Labs and Imaging studies reviewed. (See chart for details) 65M presented emergency department complaining new onset of diarrhea. No significant findings on exam. No abdominal tenderness. Patient appears of normal volume. Adamantly denies any blood or mucus in his stools raise concern for an acute colitis. We will treat the patient symptomatically discharged home Dragon Disclaimer Dragon Disclaimer This electronic medical record was generated, in whole or in part, using a voice recognition dictation system. Departure Departure Impression: Primary Impression: Diarrhea Disposition: 01 HOME / SELF CARE / HOMELESS Condition: GOOD Referrals: CELY MULLINS MD (PCP) Patient Instructions: Diarrhea Additional Instructions: EMERGENCY DEPARTMENT GENERAL DISCHARGE INSTRUCTIONS Thank you for coming to [facility] Emergency Department (ED) today and trusting us with you care. We trust that you had a positive experience in our Emergency Department. If you wish to speak to the department management, you may call the Director at [phone]. YOUR FOLLOW UP INSTRUCTIONS ARE FOLLOWS: 1. Do you have a private Doctor? If you do not have a private doctor, please ask for a resource list of physicians or clinics that may be able to assist you with follow up care. 2. The Emergency Physicain has interpreted your x-rays. The X-Ray specialist will also review them. If there is a change in the findings, you will be notified in 48 hours when at all possible. 3. A lab test or culture has been done, your results will be reviewed and you will be notified if you need a change in treatment. ADDITIONAL INSTRUCTIONS AND INFORMATION: 1. Your care today has been supervised by a physician who is specially trained in emergency care. Many problems require more than one evaluation for a complete diagnosis and treatment. We recommend that you schedule your follow up appointment as recommended to ensure complete treatment of you illness or injury. If you are unable to obtain follow up care and continue to have a problem, or if your condition worsens, we recommend that you return to the ED. 2. We are not able to safely determine your condition over the phone nor are we able to give sound medical advice over the phone. For these safety reasons, if you call for medical advice we will ask you to come to the ED for further evaluation. 3. If you have any questions regarding these discharge instructions please call the ED at [phone]. SAFETY INFORMATION: In the interest of safety, wellness, and injury prevention; we encourage you to wear your sealbelt, if you smoke; quite smoking, and we encourage family to use a protective helmet for bicycling and other sporting events that present an increased risk for head injury. IF YOUR SYMPTOMS WORSEN OR NEW SYMPTOMS DEVELOP, OR YOU HAVE CONCERNS ABOUT YOUR CONDITION; OR IF YOUR CONDITION WORSENS WHILE YOU ARE WAITING FOR YOUR FOLLOW UP APPOINTMENT; EITHER CONTACT YOUR PRIMARY CARE DOCTOR, THE PHYSICIAN WHOSE NAME AND NUMBER YOU WERE GIVEN, OR RETURN TO THE ED IMMEDIATELY. Scripts Loperamide Hcl (LOPERAMIDE) 2 Mg Tablet 1 TAB PO Q4HRS for loose stool for 30 Days, #180 TAB 0 Refills Prov: DANTE PIPER MD 09/15/20 DANTE PIPER MD Sep 15, 2020 08:25
== END 2020-09-15 08:35 | disposition home or self-care (01) ==
LOC: ER 07:27
DX: R19.7 Diarrhea, unspecified (principal); M19.90 Unspecified osteoarthritis, unspecified site; K21.9 Gastro-esophageal reflux disease without esophagitis; I10 Essential (primary) hypertension; G89.29 Other chronic pain; Z98.890 Other specified postprocedural states
CPT/HCPCS: 99282

== ENCOUNTER 2021-01-06 10:44 | Emergency (ER) | payer OTHER, MEDICAID ==
[~2021-01-06] VITALS: Ht 190.5 cm; Wt 99.0 kg
[~2021-01-06 10:44] MED LIST changes: +LOPE2TAB27 PO
[2021-01-06] MEDS ORDERED: LIDO:MAALOX 1:1 20 ML SINGLE DOSE. SWSW ONE (16:30)
[2021-01-06] MEDS ORDERED: CLINDAMYCIN HCL 150 MG CAPSULE. PO ONE (16:30)
[2021-01-06] MEDS ORDERED: DEXAMETHASONE 4 MG TABLET PO ONE (16:30)
[2021-01-06] MEDS ORDERED: CLIN150C16 PO (16:45)
[2021-01-06] MEDS ORDERED: METH4TAB2 PO (16:45)
--- NOTE | 2021-01-06 16:46 | PHYS DOC ---
Past Medical History Past Medical History: Arthritis, GERD, Hypertension, Seizure, Sinusitis, Other Additional Past Medical Histor: CHRONIC BACK PAIN, HEMORRHOIDS Past Surgical History: No Surgical History Additional Past Surgical Histo: RECTAL CYST REMOVAL Smoking Status: Never Smoker Alcohol Use: None Drug Use: None General Adult EDM: Chief Complaint: MULTIPLE COMPLAINTS HPI: HPI: Patient is a 65 year old male presents the emergency department complaining of dental infection, ongoing arthritis, and GI upset for the past month. Patient states that he would like to have a GI cocktail, be put on a steroid regimen for his ongoing chronic arthritis pains, and wants to be on antibiotic for his dental infection. Patient states he was seeing Dr. Tellez who is no longer ac cepting his phone calls and will no longer prescribe him medications. Patient denies chest pain, recent fever chills, chest congestion, chest palpitations, nasal congestion, rashes to his skin, abdominal pain, nausea, vomiting, or diarrhea. Review of Systems: Review of Systems: 14 body systems of review of systems have been reviewed. See HPI for pertinent positives and negative responses, otherwise all other systems are negative, nonpertinent or noncontributory. Constitutional: Negative except as outlined in HPI above. Skin: Negative except as outlined in HPI above. Eyes: Negative except as outlined in HPI above. HENT: Negative except as outlined in HPI above. Respiratory: Negative except as outlined in HPI above. Cardiovascular: Negative except as outlined in HPI above. GI: Negative except as outlined in HPI above. : Negative except as outlined in HPI above. Musculoskeletal: Negative except as outlined in HPI above. Integument: Negative except as outlined in HPI above. Neurologic: Negative except as outlined in HPI above. Endocrine: Negative except as outlined in HPI above. Lymphatic: Negative except as outlined in HPI above. Psychiatric: Negative except as outlined in HPI above. Heart Score: C/O Chest Pain: No Risk Factors: Risk Factors: DM, Current or recent (<one month) smoker, HTN, HLP, family history of CAD, obesity. Risk Scores: Score 0 - 3: 2.5% MACE over next 6 weeks - Discharge Home Score 4 - 6: 20.3% MACE over next 6 weeks - Admit for Clinical Observation Score 7 - 10: 72.7% MACE over next 6 weeks - Early Invasive Strategies Allergies: Allergies: Allergies Coded Allergies Type Severity Reaction Last Updated Verified Iodinated Contrast Media Allergy Intermediate 02/12/14 No Uncoded Allergies Type Severity Reaction Last Updated Verified PEANUTS Allergy Unknown 01/06/21 Physical Exam: PE: Constitutional: Well developed, well nourished, no acute distress, non-toxic appearance. 65-year-old male in no apparent distress. HENT: Normocephalic, atraumatic. Poor dental caries, multiple missing teeth. Gums erythematous right upper left gumline, no indentation to the right upper left gumline. No purulent drainage appreciated. Oropharynx within normal limits, no deep tissue infectious process appreciated, no laryngeal edema, no drooling, no trismus, patient speaking in normal voice tones. No lymphadenopathy of the head or neck appreciated. Eyes: Conjunctiva normal, no discharge. Neck: Normal range of motion, no stridor. Cardiovascular: No cyanosis appreciated, distal cap refill less than 2 seconds. Lungs & Thorax: Patient is in no respiratory distress, no audible adventitious lung sounds appreciated. Abdomen: Nontender, no abnormalities noted. Skin: Warm, dry, no erythema, no rash. Back: No tenderness, no deformities. Extremities: No tenderness, no cyanosis, no clubbing, ROM intact, no edema. Neurologic: Alert and oriented X 3, normal motor function, normal sensory function, no focal deficits noted. Psychologic: Affect normal, judgement normal, mood normal. Current Patient Data: Labs: Laboratory Tests Test 01/06/21 13:02 SARS-CoV-2 Antigen (Rapid) Negative (NEGATIVE) Vital Signs: Vital Signs Date Time Temp Pulse Resp B/P (MAP) Pulse Ox O2 Delivery O2 Flow Rate FiO2 01/06/21 13:34 67 98 01/06/21 12:30 98.2 18 194/94 Room Air 98.2 EKG: EKG: [] Radiology/Procedures: Radiology/Procedures: [] Course & Med Decision Making: Course & Med Decision Making Pertinent Labs and Imaging studies reviewed. (See chart for details) 65-year-old male, vital signs reviewed, presents emergency department asking for medication refills for his prednisone, asking for a GI cocktail for GI upset, asking for an antibiotic for his dental infection. Physical examination concerning for gingivitis, will give patient GI cocktail, start patient on Medrol Dosepak for arthritis pains. Will obtain rapid Covid testing related to patient's altered taste complaint. Patient's rapid Covid testing negative, patient reports the GI cocktail helped and he is ready to go home. Discussed with patient strict follow-up with primary care this week, patient is amenable to ED discharge planning. Discussed with the patient all findings and diagnostic testing as well as the need to follow-up with their primary care provider for further evaluation and treatment or return to the ED if any new or worsening symptoms. Strict return precautions were also discussed at length, the patient voiced understanding and agreement with the discharge planning. The patient was nontoxic in appearance, in no apparent distress, and hemodynamically stable at the time of disposition. Dragon Disclaimer: KiteReaders Disclaimer: This electronic medical record was generated, in whole or in part, using a voice recognition dictation system. Departure Departure Impression: Primary Impression: Arthritis Additional Impressions: Medication refill Gingivitis Disposition: HOME / SELF CARE / HOMELESS Condition: GOOD Referrals: CELY TELLEZ MD (PCP) Additional Instructions: Your medications have been refilled, please follow-up with your primary care doctor for ongoing medication refills. You were tested for the COVID-19 virus today, the rapid test did not indicate that you have the COVID-19 virus. I am starting you on antibiotics for your dental infection, and a Medrol Dosepak for your arthritis problems, please follow-up with your primary care physician this week as we discussed. Thank you for visiting our Emergency Department. It was a pleasure taking care of you today in the emergency department and we appreciate you trusting us with your care. If any additional problems come up don't hesitate to return to visit us. Please follow up with your primary care provider so they can plan additional care if needed and know about the problem that you had. If symptoms worsen come back to the Emergency Department. Any concerning symptoms that start such as chest pain, shortness of air, weakness or numbness on one side of the body, running high fevers or any other concerning symptoms return to the ER. EMERGENCY DEPARTMENT GENERAL DISCHARGE INSTRUCTIONS Thank you for coming to [facility] Emergency Department (ED) today and trusting us with you care. We trust that you had a positive experience in our Emergency Department. If you wish to speak to the department management, you may call the Director at [phone]. YOUR FOLLOW UP INSTRUCTIONS ARE FOLLOWS: 1. Do you have a private Doctor? If you do not have a private doctor, please ask for a resource list of physicians or clinics that may be able to assist you with follow up care. 2. The Emergency Physicain has interpreted your x-rays. The X-Ray specialist will also review them. If there is a change in the findings, you will be notified in 48 hours when at all possible. 3. A lab test or culture has been done, your results will be reviewed and you will be notified if you need a change in treatment. ADDITIONAL INSTRUCTIONS AND INFORMATION: 1. Your care today has been supervised by a physician who is specially trained in emergency care. Many problems require more than one evaluation for a complete diagnosis and treatment. We recommend that you schedule your follow up appointment as recommended to ensure complete treatment of you illness or injury. If you are unable to obtain follow up care and continue to have a problem, or if your condition worsens, we recommend that you return to the ED. 2. We are not able to safely determine your condition over the phone nor are we able to give sound medical advice over the phone. For these safety reasons, if you call for medical advice we will ask you to come to the ED for further evaluation. 3. If you have any questions regarding these discharge instructions please call the ED at [phone]. SAFETY INFORMATION: In the interest of safety, wellness, and injury prevention; we encourage you to wear your sealbelt, if you smoke; quite smoking, and we encourage family to use a protective helmet for bicycling and other sporting events that present an increased risk for head injury. IF YOUR SYMPTOMS WORSEN OR NEW SYMPTOMS DEVELOP, OR YOU HAVE CONCERNS ABOUT YOUR CONDITION; OR IF YOUR CONDITION WORSENS WHILE YOU ARE WAITING FOR YOUR FOLLOW UP APPOINTMENT; EITHER CONTACT YOUR PRIMARY CARE DOCTOR, THE PHYSICIAN WHOSE NAME AND NUMBER YOU WERE GIVEN, OR RETURN TO THE ED IMMEDIATELY. Scripts Methylprednisolone (MEDROL) 4 Mg Tab.ds.pk 1 PKG PO UD for arthritic pain, #1 PKG 0 Refills Prov: CELY SANTIAGO APRN 01/06/21 Clindamycin Hcl (CLINDAMYCIN HCL) 150 Mg Capsule 3 CAP PO TID for dental infection for 7 Days, #63 CAP 0 Refills Prov: CELY SANTIAGO APRN 01/06/21 CELY SANTIAGO APRN Jan 06, 2021 16:46
[2021-01-06] MEDS ORDERED: LIDO:MAALOX 1:1 20 ML SINGLE DOSE. ONE (17:10)
[2021-01-06 17:20] VITALS: BP 183/95
--- NOTE | 2021-01-07 18:55 | NUR ---
IP: Attempted to contact pt concerning covid test results. A female answered the phone and screamed that I am not to call again before I even stated who I was or why I was calling. Attempted to call back, no answer.
== END 2021-01-06 17:15 | disposition home or self-care (01) ==
LOC: ER 10:44
DX: K05.10 Chronic gingivitis, plaque induced (principal); Z20.822 Contact with and (suspected) exposure to COVID-19; M19.90 Unspecified osteoarthritis, unspecified site; K21.9 Gastro-esophageal reflux disease without esophagitis; I10 Essential (primary) hypertension; G89.29 Other chronic pain; Z91.041 Radiographic dye allergy status; Z91.010 Allergy to peanuts
CPT/HCPCS: 87426; 99284; U0003

== ENCOUNTER 2021-01-11 17:09 | Emergency (ER) | payer OTHER, MEDICAID ==
[~2021-01-11] VITALS: Ht 180.3 cm; Wt 79.5 kg
[~2021-01-11 17:09] MED LIST changes: +CLIN150C16 PO
--- NOTE | 2021-01-11 17:23 | PHYS DOC ---
Past Medical History Past Medical History: Arthritis, GERD, Hypertension, Seizure, Sinusitis, Other Additional Past Medical Histor: CHRONIC BACK PAIN, HEMORRHOIDS Past Surgical History: No Surgical History Additional Past Surgical Histo: RECTAL CYST REMOVAL Smoking Status: Never Smoker Alcohol Use: None Drug Use: None General Adult EDM: Chief Complaint: DEHYDRATION HPI: HPI: Patient is a 65 year old male with history of arthritis, seizures, hypertension, acid reflux, who presents to the ED today complaining of heat exhaustion with dehydration. Patient states he was outside for too long roughly 30 minutes. He states he started feeling hot, nauseated and having muscle spasms on the neck. Patient denies any chest pain or shortness of breath. States he feels slightly better in the ED. He states right now he feels thirsty and his mouth and lips are dry. Review of Systems: Review of Systems: Constitutional: Reports heat exhaustion and dehydration, denies fever or chills. [] Eyes: Denies change in visual acuity. [] HENT: Denies nasal congestion or sore throat. [] Respiratory: Denies cough or shortness of breath. [] Cardiovascular: Denies chest pain or edema. [] GI: Denies abdominal pain, nausea, vomiting, bloody stools or diarrhea. [] : Denies dysuria. [] Musculoskeletal: Denies back pain or joint pain. [] Integument: Denies rash. [] Neurologic: Denies headache, focal weakness or sensory changes. [] Psychiatric: Denies depression or anxiety. [] Heart Score: C/O Chest Pain: N/A Risk Factors: Risk Factors: DM, Current or recent (<one month) smoker, HTN, HLP, family h istory of CAD, obesity. Risk Scores: Score 0 - 3: 2.5% MACE over next 6 weeks - Discharge Home Score 4 - 6: 20.3% MACE over next 6 weeks - Admit for Clinical Observation Score 7 - 10: 72.7% MACE over next 6 weeks - Early Invasive Strategies Allergies: Allergies: Allergies Coded Allergies Type Severity Reaction Last Updated Verified Iodinated Contrast Media Allergy Intermediate 02/12/14 No Uncoded Allergies Type Severity Reaction Last Updated Verified PEANUTS Allergy Unknown 01/06/21 Physical Exam: PE: Constitutional: Well developed, well nourished, no acute distress, non-toxic appearance. [] HENT: Normocephalic, atraumatic, bilateral external ears normal, oropharynx dry, no oral exudates, nose normal. [] Eyes: PERRLA, EOMI, conjunctiva normal, no discharge. [] Neck: Normal range of motion, no tenderness, supple, no stridor. [] Cardiovascular:Heart rate regular rhythm, no murmur [] Lungs & Thorax: Bilateral breath sounds clear to auscultation [] Abdomen: Bowel sounds normal, soft, no tenderness, no masses, no pulsatile masses. [] Skin: Warm, dry, no erythema, no rash. [] Back: No tenderness, no CVA tenderness. [] Extremities: No tenderness, no cyanosis, no clubbing, ROM intact, no edema. [] Neurologic: Alert and oriented X 3, normal motor function, normal sensory function, no focal deficits noted. Cranial nerves II through XII intact Psychologic: Affect normal, judgement normal, mood normal. [] EKG: EK interpreted by Dr. Juarez sinus rhythm HR 78 no STEMI[] Radiology/Procedures: Radiology/Procedures: [] Course & Med Decision Making: Course & Med Decision Making Pertinent Labs and Imaging studies reviewed. (See chart for details) This is a 65-year-old male patient presented to the ED today complaining of heat exhaustion with dehydration after being outside for 30 minutes. Temperatures above 90 degrees. EKG is negative. CBC with no acute findings, CMP with potassium of 3.2, patient was given oral potassium replacement. Creatinine 1.6, BUN is normal. This is around patient's baseline. In May he had creatinine of 1.7. UA negative for infection. CK is normal. He was given IV fluids in the ED. I reevaluated him. He states he feels so much better. Discharge to home. Encouraged to stay in a cool environment and hydrate himself at home. Follow-up with his PCP next week Pina Disclaimer: Pina Disclaimer: This electronic medical record was generated, in whole or in part, using a voice recognition dictation system. Departure Departure Impression: Primary Impression: Heat exhaustion Qualified Codes: T67.5XXA - Heat exhaustion, unspecified, initial encounter Additional Impressions: Renal insufficiency Dehydration Hypokalemia Disposition: HOME / SELF CARE / HOMELESS Condition: STABLE Referrals: CELY MULLINS MD (PCP) follow up in the course of this week Patient Instructions: Heat Illness-SportsMed, Hypokalemia-Brief Additional Instructions: You were evaluated in the emergency room for heat exhaustion and dehydration. Try and stay in a cool environment. Push fluids. Your potassium was slightly low, increase your dietary potassium intake. Foods like bananas will help increase your potassium. Follow-up with your doctor in 1 week. AYDEE YOO APRN Jan 11, 2021 17:22
[2021-01-11] MEDS ORDERED: ONDANSETRON PF 4 MG/2 ML VIAL. IVP ONE (17:30)
[2021-01-11] MEDS ORDERED: IV NORMAL SALINE 1000ML BAG 1,000 ML IV ONE (17:30)
--- NOTE | 2021-01-11 18:31 | EKG ---
[facility] [address] [place] [address] Test Date: 2021-01-11 Test Time: 18:03:16 Pat Name: MUSTAPHA LAWLER Department: Room: Gender: Physician Chief Of Pathology: : 1955 Requested By: AYDEE OYO Order Number: [id number] Reading MD: Measurements Intervals [place] Rate: 78 P: 28 DE: 156 QRS: 28 QRSD: 100 T: -16 QT: 376 QTc: 432 Interpretive Statements SINUS RHYTHM NORMAL ECG RI6.02 No previous ECG available for comparison
[2021-01-11 18:55] LABS: BASO % 0 % (0-3); EOS % 0 % (0-3); HEMATOCRIT 43.1 % (39.0-53.0); LYMPH # 0.7 x10^3/uL (1.0-4.8); LYMPH % 7 % (24-48); MEAN CORPUSCULAR HEMOGLOBIN 28 pg (25-35); MEAN CORPUSCULAR HGB CONC 35 g/dL (31-37); MEAN CORPUSCULAR VOLUME 79 fL (79-100); MONO # 0.3 x10^3/uL (0.0-1.1); MONO % 3 % (0-9); NEUT # 9.1 x10^3/uL (1.8-7.7); NEUT % 89 % (31-73); PLATELET COUNT 195 x10^3/uL (140-400); RED BLOOD COUNT 5.45 x10^6/uL (4.30-5.70); WHITE BLOOD COUNT 10.2 x10^3/uL (4.0-11.0)
[2021-01-11 19:05] LABS: CALCIUM 9.9 mg/dL (8.5-10.1); CREATININE 1.6 mg/dL (0.7-1.3); GFR 52.6; POTASSIUM 3.2 mmol/L (3.5-5.1)
[2021-01-11 19:11] LABS: ALBUMIN/GLOBULIN RATIO 1.1 (1.0-1.7); MAGNESIUM 2.5 mg/dL (1.8-2.4); TOTAL BILIRUBIN 0.2 mg/dL (0.2-1.0); TOTAL PROTEIN 7.5 g/dL (6.4-8.2)
[2021-01-11 19:29] LABS: % BANDS 1 % (0-9); % LYMPHS 8 % (24-48); % MONOS 2 % (0-10); % SEGS 89 % (35-66); CREATINE KINASE 85 U/L (39-308); PLT ESTIMATE ADEQUATE (ADEQUATE)
[2021-01-11] MEDS ORDERED: POTASSIUM CHLORIDE 20 MEQ TABLET.ER. PO ONE (19:30)
[2021-01-11 20:12] LABS: BILIRUBIN,URINE NEGATIVE (NEG); CLARITY,URINE CLEAR; COLOR,URINE YELLOW; NITRITE,URINE NEGATIVE (NEG); PH,URINE 6.5 (<5.0-8.0); PROTEIN,URINE NEGATIVE (NEG-TRACE); UROBILINOGEN,URINE 0.2 mg/dL (0.2 mg/dL)
[2021-01-11 20:17] LABS: BACTERIA,URINE 0 /HPF (0-FEW); RBC,URINE 0 /HPF (0-2); WBC,URINE OCC /HPF (0-4)
[2021-01-11 20:23] LABS: BARBITURATES NEG (NEG); BENZODIAZEPINES NEG (NEG); CANNABINOIDS POS (NEG); COCAINE NEG (NEG); METHADONE NEG (NEG); OPIATES NEG (NEG); PHENCYCLIDINE NEG (NEG)
[2021-01-11 20:25] LABS: AMPHETAMINE/METHAMPHETAMINE NEG (NEG)
[2021-01-11 20:42] VITALS: BP 154/77
== END 2021-01-11 20:58 | disposition home or self-care (01) ==
LOC: ER 17:09
DX: T67.5XXA Heat exhaustion, unspecified, initial encounter (principal); E86.0 Dehydration; E87.6 Hypokalemia; N28.9 Disorder of kidney and ureter, unspecified; K21.9 Gastro-esophageal reflux disease without esophagitis; I10 Essential (primary) hypertension; G89.29 Other chronic pain; Z91.041 Radiographic dye allergy status; Z91.010 Allergy to peanuts; X30.XXXA Exposure to excessive natural heat, initial encounter; Y93.89 Activity, other specified; Y92.89 Other specified places as the place of occurrence of the external cause; Y99.8 Other external cause status
CPT/HCPCS: 36415; 80053; 80307; 81001; 82553; 83735; 83880; 84484; 85007; 85025; 93005; 96360; 99284; J7030

== ENCOUNTER → 2021-03-04 | Outpatient (CLI) | payer OTHER, MEDICAID ==
--- NOTE | 2021-03-04 17:03 | RAD ---
EXAM: 1. Bilateral hands 3 views. 2. Right ankle 3 views. HISTORY: Polyarthralgia COMPARISON: None. FINDINGS: No erosions are appreciated within either hand. There is mild interphalangeal osteoarthriti s, predominantly distally. It is also mild at the left first carpometacarpal and third metacarpophala ngeal joints. Alignment is maintained. No fractures are appreciated at the right ankle. Mortise joint spaces and alignment are maintained. T here are benign bone islands within the distal tibia and fibula. There is a small plantar calcaneal s pur. IMPRESSION: 1. Mild osteoarthritis is the predominant process enhance. No erosions. 2. No clear degenerative change at the right ankle. Electronically signed by: Jarocho Fuentes MD (03/04/2021 5:01 PM) [id number]
== END ==
LOC: RAD 13:32
PROVIDERS: ATTEND Internal Medicine Rheumatology
DX: M19.071 Primary osteoarthritis, right ankle and foot (principal); M77.31 Calcaneal spur, right foot
CPT/HCPCS: 73610; 73130-50

== ENCOUNTER 2021-10-03 09:16 | Emergency (ER) | payer OTHER, MEDICAID ==
[~2021-10-03] VITALS: Ht 190.5 cm; Wt 105.0 kg
[~2021-10-03 09:16] MED LIST changes: +CYCL10TA19 PO; -CYCL10TA2 PO
--- NOTE | 2021-10-03 09:31 | PHYS DOC ---
Past Medical History Past Medical History: Arthritis, GERD, Hypertension, Seizure, Sinusitis, Other Additional Past Medical Histor: CHRONIC BACK PAIN, HEMORRHOIDS Past Surgical History: No Surgical History Additional Past Surgical Histo: RECTAL CYST REMOVAL Smoking Status: Never Smoker Alcohol Use: None Drug Use: None General Adult EDM: Chief Complaint: HYPERTENSION HPI: HPI: Patient is a 66-year-old male who presents today with hypertension via [facility]. Patient states that he called 911 stating that he thinks his blood pressure was up EMS took his blood pressure at the scene it was 170s systolically and they elected to transport the patient here to the emergency department where his blood pressure currently is in the 140s over 80s. Patient denies chest pain, shortness of breath, fever or chills, patient does state he does have a headache and that he has severe allergies and he has been taking allergy medicine for that. Patient also states that his significant other has been on a drinking binge and she has been nonstop talking and up for the last 4 days and he says he has not gotten much rest. Review of Systems: Review of Systems: Constitutional: Denies fever or chills. [] Eyes: Denies change in visual acuity. [] HENT: Denies nasal congestion or sore throat. [] Respiratory: Denies cough or shortness of breath. [] Cardiovascular: Hypertension denies chest pain or edema. GI: Denies abdominal pain, nausea, vomiting, bloody stools or diarrhea. [] : Denies dysuria. [] Musculoskeletal: Denies back pain or joint pain. [] Integument: Denies rash. [] Neurologic: Denies headache, focal weakness or sensory changes. [] Endocrine: Denies polyuria or polydipsia. [] Lymphatic: Denies swollen glands. [] Psychiatric: Denies depression or anxiety. [] Heart Score: C/O Chest Pain: No Risk Factors: Risk Factors: DM, Current or recent (<one month) smoker, HTN, HLP, family history of CAD, obesity. Risk Scores: Score 0 - 3: 2.5% MACE over next 6 weeks - Discharge Home Score 4 - 6: 20.3% MACE over next 6 weeks - Admit for Clinical Observation Score 7 - 10: 72.7% MACE over next 6 weeks - Early Invasive Strategies Allergies: Allergies: Allergies Coded Allergies Type Severity Reaction Last Updated Verified Iodinated Contrast Media Allergy Intermediate 02/12/14 No Uncoded Allergies Type Severity Reaction Last Updated Verified PEANUTS Allergy Unknown 01/06/21 Physical Exam: PE: Constitutional: Well developed, well nourished, no acute distress, non-toxic appearance. [] HENT: Normocephalic, atraumatic, bilateral external ears normal, oropharynx moist, no oral exudates, nose normal. [] Eyes: PERRLA, EOMI, conjunctiva normal, no discharge. [] Neck: Normal range of motion, no tenderness, supple, no stridor. [] Cardiovascular:Heart rate regular rhythm, no murmur [] Lungs & Thorax: Bilateral breath sounds clear to auscultation [] Abdomen: Bowel sounds normal, soft, no tenderness, no masses, no pulsatile masses. [] Skin: Warm, dry, no erythema, no rash. [] Back: No tenderness, no CVA tenderness. [] Extremities: No tenderness, no cyanosis, no clubbing, ROM intact, no edema. [] Neurologic: Alert and oriented X 3, normal motor function, normal sensory function, no focal deficits noted. [] Psychologic: Affect normal, judgement normal, mood normal. [] Current Patient Data: Labs: Laboratory Tests Test 10/03/21 09:40 White Blood Count 7.5 x10^3/uL Red Blood Count 5.34 x10^6/uL Hemoglobin 14.4 g/dL Hematocrit 42.4 % Mean Corpuscular Volume 79 fL Mean Corpuscular Hemoglobin 27 pg Mean Corpuscular Hemoglobin Concent 34 g/dL Red Cell Distribution Width 16.1 % Platelet Count 172 x10^3/uL Neutrophils (%) (Auto) 67 % Lymphocytes (%) (Auto) 21 % Monocytes (%) (Auto) 11 % Eosinophils (%) (Auto) 1 % Basophils (%) (Auto) 1 % Neutrophils # (Auto) 5.0 x10^3/uL Lymphocytes # (Auto) 1.6 x10^3/uL Monocytes # (Auto) 0.8 x10^3/uL Eosinophils # (Auto) 0.1 x10^3/uL Basophils # (Auto) 0.0 x10^3/uL Sodium Level 142 mmol/L Potassium Level 3.6 mmol/L Chloride Level 103 mmol/L Carbon Dioxide Level 25 mmol/L Anion Gap 14 Blood Urea Nitrogen 18 mg/dL Creatinine 1.7 mg/dL Estimated GFR (Cockcroft-Gault) 48.9 Glucose Level 172 mg/dL Calcium Level 10.1 mg/dL Troponin I High Sensitivity 30 ng/L XY-Iap-R-Type Natriuretic Peptide 57 pg/mL Vital Signs: Vital Signs Date Time Temp Pulse Resp B/P (MAP) Pulse Ox O2 Delivery O2 Flow Rate FiO2 10/03/21 11:05 72 18 161/75 (103) 94 10/03/21 10:00 88 16 158/80 (106) 96 10/03/21 09:25 98.2 94 16 144/83 (103) 98 Room Air 98.2 Vital Signs Date Time Temp Pulse Resp B/P (MAP) Pulse Ox O2 Delivery O2 Flow Rate FiO2 10/03/21 09:25 98.2 94 16 144/83 (103) 98 Room Air 98.2 Vital Signs Date Time Temp Pulse Resp B/P (MAP) Pulse Ox O2 Delivery O2 Flow Rate FiO2 10/03/21 09:25 98.2 94 16 144/83 (103) 98 Room Air 98.2 EKG: EKG: EKG done at [address] Isaac at 925 shows sinus rhythm at a rate of 91 with a KS interval of 152 ms with a QTC of 4 8 7 ms no STEMI [] Radiology/Procedures: Radiology/Procedures: REASON: HTN PROCEDURE: PORTABLE CHEST 1V EXAM: Chest, single view. HISTORY: Hypertension. COMPARISON: None. FINDINGS: A frontal view of the chest obtained. There is no infiltrate, pleural effusion or pneumothorax. The heart is normal in size. There are few calcified granulomas. IMPRESSION: No acute pulmonary finding. Electronically signed by: Ceci Bello MD (10/03/2021 10:03 AM) [id number][] REASON: BENITO PROCEDURE: CT HEAD WO CONTRAST EXAM: Head CT without contrast. HISTORY: Headache. TECHNIQUE: Computed tomographic images of the head were obtained without contrast. *One or more of the following individualized dose reduction techniques were utilized for this examination: 1. Automated exposure control. 2. Adjustment of the mA and/or kV according to patient size. 3. Use of iterative reconstruction technique. COMPARISON: None. FINDINGS: There is increased density within the left greater than right inferior frontal extra-axial space which is likely due to overlying bone artifact. The imaging appearance does not favor extra-axial hemorrhage. There is no mass effect or midline shift. There is no hydrocephalus. There are cerebral white matter changes, likely due to chronic small vessel disease. The visualized portions of the orbits, paranasal sinuses mastoid air cells are unremarkable. There is no suspicious calvarial lesion. IMPRESSION: No convincing acute intracranial finding. MRI is more sensitive for acute infarction. Electronically signed by: Ceci Bello MD (10/03/2021 10:20 AM) [id number] Course & Med Decision Making: Course & Med Decision Making Pertinent Labs and Imaging studies reviewed. (See chart for details) 1115 reassessment of patient patient is sitting comfortably in his room watching TV with no complaints of chest pain or shortness of breath, patient's blood pressure is 161/80, he says his headache has improved, I reviewed radiological and laboratory results with patient did inform him there was no acute findings at this time. I did instruct him to follow-up with Dr. Tellez his primary care physician tomorrow and touch base regarding his blood pressure management. I did encourage him to return here to the emergency department should he have any chest pain increase shortness of breath or development of blurred vision double vision. Patient verbalized understanding of this and agreeable with the plan of care. Pina Disclaimer: Pina Disclaimer: This electronic medical record was generated, in whole or in part, using a voice recognition dictation system. Departure Departure Impression: Primary Impression: Hypertension Qualified Codes: I10 - Essential (primary) hypertension Disposition: HOME / SELF CARE / HOMELESS Condition: STABLE Referrals: CELY TELLEZ MD (PCP) Patient Instructions: Hypertension Additional Instructions: Continue with your home medications as prescribed by Dr. Tellez Follow-up with your primary care physician tomorrow by phone and speak to him about your emergency room visit and blood pressure management Return here to the emergency department should you have chest pain, shortness of breath, dizziness, lightheadedness or change in mental status. ROSE FLORES APRN October 03, 2021 09:31
[2021-10-03 10:03] LABS: BASO % 1 % (0-3); EOS # 0.1 x10^3/uL (0.0-0.7); EOS % 1 % (0-3); HEMATOCRIT 42.4 % (39.0-53.0); HEMOGLOBIN 14.4 g/dL (13.0-17.5); LYMPH # 1.6 x10^3/uL (1.0-4.8); LYMPH % 21 % (24-48); MEAN CORPUSCULAR HEMOGLOBIN 27 pg (25-35); MEAN CORPUSCULAR HGB CONC 34 g/dL (31-37); MEAN CORPUSCULAR VOLUME 79 fL (79-100); MONO # 0.8 x10^3/uL (0.0-1.1); MONO % 11 % (0-9); NEUT % 67 % (31-73); PLATELET COUNT 172 x10^3/uL (140-400); RED BLOOD COUNT 5.34 x10^6/uL (4.30-5.70); RED CELL DISTRIBUTION WIDTH 16.1 % (11.5-14.5); WHITE BLOOD COUNT 7.5 x10^3/uL (4.0-11.0)
--- NOTE | 2021-10-03 10:06 | RAD ---
EXAM: Chest, single view. HISTORY: Hypertension. COMPARISON: None. FINDINGS: A frontal view of the chest obtained. There is no infiltrate, pleural effusion or pneumotho rax. The heart is normal in size. There are few calcified granulomas. IMPRESSION: No acute pulmonary finding. Electronically signed by: Ceci Bello MD (10/03/2021 10:03 AM) [id number]
[2021-10-03 10:11] LABS: CALCIUM 10.1 mg/dL (8.5-10.1); CREATININE 1.7 mg/dL (0.7-1.3); GFR 48.9; POTASSIUM 3.6 mmol/L (3.5-5.1)
--- NOTE | 2021-10-03 10:22 | RAD ---
EXAM: Head CT without contrast. HISTORY: Headache. TECHNIQUE: Computed tomographic images of the head were obtained without contrast. *One or more of the following individualized dose reduction techniques were utilized for this examina tion: 1. Automated exposure control. 2. Adjustment of the mA and/or kV according to patient size. 3. Use of iterative reconstruction technique. COMPARISON: None. FINDINGS: There is increased density within the left greater than right inferior frontal extra-axial space which is likely due to overlying bone artifact. The imaging appearance does not favor extra-axi al hemorrhage. There is no mass effect or midline shift. There is no hydrocephalus. There are cerebra l white matter changes, likely due to chronic small vessel disease. The visualized portions of the or bits, paranasal sinuses mastoid air cells are unremarkable. There is no suspicious calvarial lesion. IMPRESSION: No convincing acute intracranial finding. MRI is more sensitive for acute infarction. Electronically signed by: Ceci Bello MD (10/03/2021 10:20 AM) [id number]
[2021-10-03 11:05] VITALS: BP 161/75
--- NOTE | 2021-10-03 12:04 | EKG ---
[facility] [address] [place] [address] Test Date: 2021-10-03 Test Time: 09:20:03 Pat Name: MUSTAPHA LAWLER Department: Room: Gender: Taxation Consultant: : [id number] Requested By: ROSE FLORES Order Number: [id number] Reading MD: Eder Khalil Measurements Intervals [place] Rate: 91 P: 27 DC: 152 QRS: 26 QRSD: 90 T: 26 QT: 330 QTc: 407 Interpretive Statements SINUS RHYTHM NORMAL ECG RI6.02 Compared to ECG 01/11/2021 18:03:16 No significant changes Electronically Signed On 10-04-2021 10:04:36 CDT by Eder Khalil
== END 2021-10-03 11:31 | disposition home or self-care (01) ==
LOC: ER 09:16
DX: I10 Essential (primary) hypertension (principal); K21.9 Gastro-esophageal reflux disease without esophagitis; G89.29 Other chronic pain; Z91.010 Allergy to peanuts; Z91.041 Radiographic dye allergy status
CPT/HCPCS: 36415; 70450; 71045; 80048; 83880; 84484; 85025; 93005; 99285-25